=== PATIENT | female | born 1970 | race Caucasian/White ===

== ENCOUNTER → 2017-04-22 | Outpatient (CLI) | payer OTHER ==
[~2017-04-22] MED LIST: ACET-2267 PO; ASPI-999 PO; CYAN3000 SL; ESTR1PAT73 TD; ESTROVEN ENER400 MCG PO; HYDR-3816 PO; HYDR1TAB PO; IBUP-1773 PO; MULT-192 PO; NORG1TAB14 PO; OMG1KC PO; PNV1TABL9 PO; VITA80006 PO; [UNRECOGNIZED DRUG - REMARK] PO; ferrous sulfate PO
--- NOTE | 2017-04-23 08:38 | Diagnostic Imaging Report ---
Bilateral screening mammogram 2D views with tomosynthesis The current study was also evaluated with a Computer Aided Detection (CAD) system. Indication: Screening. No current complaints stated on the questionnaire. COMPARISON: 12/31/15. Findings: The breasts are composed of heterogeneously dense parenchyma which may decrease mammographic sensitivity. Occasional benign-appearing calcifications are seen. Previously seen cysts in the left breast are smaller in size on the current exam. Allowing for technique and positional differences, no suspicious change is seen. IMPRESSION: No suspicious change. ACR BI-RADS Category 2: Benign findings. Result letter will be mailed to the patient. Note: At least 10% of breast cancer is not imaged by mammography. Dictated by: Dictated on workstation # [id number]
== END ==
LOC: RAD 09:46
PROVIDERS: ATTEND Nurse Practitioner Adult Health
DX: Z12.31 Encounter for screening mammogram for malignant neoplasm of breast (principal)
CPT/HCPCS: 77067